=== PATIENT | female | born 1985 | race Caucasian/White ===

== ENCOUNTER 2022-05-22 11:53 | Emergency (ER) | payer SELFPAY ==
[2022-05-22 12:52] LABS: Amphetamine Screen,Urine Negative; Benzodiazepines Screen,Urine Negative; Methadone Screen,Urine Negative; Opiate Screen,Urine Negative
[2022-05-22 13:04] LABS: Cannabinoid Screen,Urine Positive; Cocaine Screen,Urine Positive
[2022-05-22] MEDS ORDERED: ZIPRASIDONE MESYLATE 20 MG VIAL IM PRN (13:22)
[2022-05-22 13:34] LABS: Amphetamine Screen,Urine Negative; Benzodiazepines Screen,Urine Negative; Methadone Screen,Urine Negative; Opiate Screen,Urine Negative
[2022-05-22 13:45] LABS: BUN/Creatinine Ratio 10; Blood Urea Nitrogen 6 mg/dL (7-17); Calcium 9.1 mg/dL (8.4-10.2); Hemolysis Index 1
[2022-05-22 13:46] LABS: Cannabinoid Screen,Urine Positive; Cocaine Screen,Urine Positive
[2022-05-22 13:47] LABS: Basophils # (Auto) 0.1 K/mm3 (0.0-0.1); Basophils % (Auto) 0.7 % (0.0-1.8); Eosinophils % (Auto) 0.2 % (0.0-4.3); Hematocrit 37.6 % (30.3-42.9); Hemoglobin 11.7 gm/dl (10.1-14.3); Lymphocytes # (Auto) 2.6 K/mm3 (1.2-5.4); Mean Corpuscular HGB Conc 31 % (30-34); Mean Corpuscular Volume 86 fl (79-97); Monocytes # (Auto) 0.5 K/mm3 (0.0-0.8); Monocytes % (Auto) 5.9 % (0.0-7.3); Platelet Count 354 K/mm3 (140-440); Red Blood Count 4.37 M/mm3 (3.65-5.03)
[2022-05-22 13:54] LABS: Bacteria,Urine 1+ /HPF (Negative)
[2022-05-22 13:55] LABS: Red Cell Distribution Width 21.9 % (13.2-15.2)
[2022-05-22 13:57] LABS: Color,Urine Yellow (Yellow)
--- NOTE | 2022-05-22 14:16 | Emergency Department Report ---
ED Psych HPI - General Chief Complaint: Psych Stated Complaint: SI Time Seen by Provider: 05/22/22 12:28 Source: patient, EMS Mode of arrival: Ambulatory - History of Present Illness Initial Comments: Patient is a 47-year-old female presenting to ED with complaint of SI and heari ng voices telling her things around. History of bipolar/schizophrenia and states she has been without her Seroquel and trazodone for the past 5 days. - Related Data Allergies Allergy/AdvReac Type Severity Reaction Status Date / Time No Known Allergies Allergy Unverified 05/22/22 12:23 ED Review of Systems ROS: Stated complaint: SI Other details as noted in HPI Constitutional: denies: chills, fever Respiratory: denies: cough, shortness of breath, wheezing Cardiovascular: denies: chest pain, palpitations Gastrointestinal: denies: abdominal pain, nausea, diarrhea Genitourinary: denies: urgency, dysuria, discharge Musculoskeletal: denies: back pain, joint swelling, arthralgia Skin: denies: rash, lesions Neurological: denies: headache, weakness, paresthesias Psychiatric: auditory hallucinations, suicidal thoughts. denies: homicidal thoughts Hematological/Lymphatic: denies: easy bleeding, easy bruising ED Past Medical Hx - Past Medical History Hx Psychiatric Treatment: Yes (bipolar/schizophrenia) ED Physical Exam - General Limitations: No Limitations General appearance: alert - Head Head exam: Present: atraumatic, normocephalic - Respiratory Respiratory exam: Present: normal lung sounds bilaterally. Absent: respiratory distress - Cardiovascular Cardiovascular Exam: Present: regular rate, normal rhythm, normal heart sounds - GI/Abdominal GI/Abdominal exam: Present: soft. Absent: distended - Rectal Rectal exam: Present: deferred - Neurological Exam Neurological exam: Present: alert, oriented X3 - Psychiatric Psychiatric exam: Present: normal affect, normal mood - Skin Skin exam: Present: warm, dry, intact, normal color ED Course Vital Signs 05/22/22 05/22/22 12:18 13:23 Temperature 98.7 F Pulse Rate 108 H Respiratory 18 Rate Blood Pressure 142/86 [Left] O2 Sat by Pulse 99 97 Oximetry ED Medical Decision Making - Lab Data Result diagrams: 05/22/22 12:57 05/22/22 12:57 - Medical Decision Making Labs grossly unremarkable except for UDS positive for THC and cocaine. Serum alcohol 0.14. Patient placed on 1013. Awaiting mental health evaluation. Critical care attestation.: If time is entered above; I have spent that time in minutes in the direct care of this critically ill patient, excluding procedure time. ED Disposition Clinical Impression: Suicidal ideation, Auditory hallucinations Disposition: 30 STILL A PATIENT Is pt being admited?: No Condition: Stable
[2022-05-23 09:34] VITALS: BP 137/92
--- NOTE | 2022-05-23 11:15 | Consultation ---
History of Present Illness - Reason for Consult Consult date: 05/23/22 Reason for consult: SI - History of Present Psychiatric Illness The patient was seen today. She endorses SI, and voices telling her to kill herself and she's not worth living. The patient is smiling inappropriately. She says she has a history of bipolar and schizophrenia. The patient says she takes zoloft 150, depakote 125 BID, seroquel 50 qam, and 100 qhs, and trazodone 150. She says is very depressed. REVIEW OF SYSTEMS Constitutional: Negative for weight loss ENT: Negative for stridor Respiratory: Negative for cough or hemoptysis All other systems reviewed and are negative MENTAL STATUS EXAMINATION General Appearance and Behavior: Age appropriate, wearing appropriate clothes, cooperative, polite with questioning, good eye contact Cooperation: cooperative Psychomotor Behavior: Psychomotor normal Mood: depressed Affect and affective range: congruent with stated affect, smiling inappropriately Thought Process: goal directed Thought Content: hopelessness Speech: Normal volume, Regular rate and rhythm Suicidal Ideation: Yes Homicidal Ideation: Denies Hallucination: Auditory Delusions: None elicited Impulse Control: Impaired Insight and Judgment: Limited Memory: Intact Attention: attentive Orientation: Alert and oriented Diagnoses: Schizophenia Treatment Plan 1013 Zoloft 150mg po daily depakote 125mg BID, seroquel 50 qam, and 100 qhs trazodone 150mg po qhs Medical: Per primary Sitter: defer to primary Disposition: Recommend acute psychiatric inpatient treatment Will follow. Thanks Case staffed with Dr. Han Medications and Allergies Allergies Allergy/AdvReac Type Severity Reaction Status Date / Time No Known Allergies Allergy Unverified 05/22/22 12:23 Home Medications Medication Instructions Recorded Confirmed Last Taken Type Depakote 50 05/23/22 Unknown History SEROquel 100 05/23/22 Unknown History Zoloft 150 05/23/22 Unknown History traZODone 100 05/23/22 Unknown History Active Meds: Active Medications Ziprasidone (Ziprasidone Mesylate 20 Mg Vial) 10 mg IM Q2H PRN PRN Reason: Agitation Last Admin: 05/22/22 14:02 Dose: 10 mg Mental Status Exam - Vital signs Last Vital Signs Temp 98.1 F 05/23/22 10:24 Pulse 89 05/23/22 10:24 Resp 13 05/23/22 10:24 BP 137/92 05/23/22 10:24 Pulse Ox 99 05/23/22 10:24 Results Result Diagrams: 05/22/22 12:57 05/22/22 12:57 Abnormal lab results 05/22/22 05/22/22 05/22/22 Range/Units 12:57 12:57 12:57 MCH (28-32) pg RDW (13.2-15.2) % Sodium 135 L (137-145) mmol/L Chloride 96.8 L (98-107) mmol/L BUN 6 L (7-17) mg/dL U Epithel Cells (Auto) (0-13.0) /HPF Salicylates < 0.3 L (2.8-20.0) mg/dL Acetaminophen 5.0 L (10.0-30.0) ug/mL Plasma/Serum Alcohol (0-0.07) % 05/22/22 05/22/22 05/22/22 Range/Units 12:57 12:57 Unknown MCH 27 L (28-32) pg RDW 21.9 H (13.2-15.2) % Sodium (137-145) mmol/L Chloride (98-107) mmol/L BUN (7-17) mg/dL U Epithel Cells (Auto) 15.0 H (0-13.0) /HPF Salicylates (2.8-20.0) mg/dL Acetaminophen (10.0-30.0) ug/mL Plasma/Serum Alcohol 0.14 H (0-0.07) % All other labs normal.
[2022-05-23] MEDS ORDERED: LORazepam 1 MG TAB PO ONE (11:56)
--- NOTE | 2022-05-23 11:58 | Event Note ---
Date: 05/23/22 vss , medically cleared , no distress , wants somethigf or agitation and for her private area assessed by psych , awaiting psych placement
[2022-05-23] MEDS ORDERED: SERTRALINE 50 MG TAB PO SCH (12:00)
[2022-05-23] MEDS ORDERED: DIVALPROEX DR 125 MG TAB PO SCH (12:00)
[2022-05-23] MEDS ORDERED: traZODone 100 MG TAB PO SCH (22:00)
[2022-05-23] MEDS ORDERED: QUEtiapine 100 MG TAB PO SCH (22:00)
[2022-05-24] MEDS ORDERED: QUEtiapine 25 MG TAB PO SCH (10:00)
[2022-05-24] MEDS ORDERED: CLOTRIMAZOLE 1% VAG CREAM 45 GM VG SCH (10:00)
== END 2022-05-23 18:35 ==
LOC: ED 11:53
DX: R45.851 Suicidal ideations (principal); R44.0 Auditory hallucinations; F31.9 Bipolar disorder, unspecified; Z20.822 Contact with and (suspected) exposure to COVID-19
CPT/HCPCS: 36415; 80048; 80307; 81001; 84703; 85025; 96372; 99285; J3486; U0003; 80320; G0480